=== PATIENT | female | born 2000 | race African-American/Black ===

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

== ENCOUNTER 2023-06-16 14:31 | Emergency (ER) | payer MEDICAID ==
[~2023-06-16] VITALS: Ht 162.6 cm; Wt 98.0 kg
[2023-06-16 14:43] VITALS: O2SAT 99
[2023-06-16] MEDS ORDERED: ASPI-1154 PO (19:10)
[2023-06-16] MEDS: KETOROLAC 30MG/ML VIAL IM ONE (19:15)
[2023-06-16] MEDS: DIPHENHYDRAMINE 50MG/ML VIAL IM ONE (19:15)
[2023-06-16] MEDS: METOCLOPRAMIDE HCL 10MG/2ML VIAL IM ONE (19:15)
[2023-06-16 19:30] VITALS: BP 133/70; PULSE 96; RESP 18; TEMP 98
== END 2023-06-16 19:36 | disposition home or self-care (01) ==
LOC: ER 14:31
DX: G43.909 Migraine, unspecified, not intractable, without status migrainosus (principal); F12.90 Cannabis use, unspecified, uncomplicated
CPT/HCPCS: 81025; 96372; 99284; J1200; J1885; J2765; Z7610